=== PATIENT | male | born 1970 | race Caucasian/White ===

== ENCOUNTER → 2018-05-07 | Outpatient (CLI) | payer OTHER ==
--- NOTE | 2018-05-07 07:47 | US ---
EXAMINATION TYPE: US abdomen complete DATE OF EXAM: 05/07/2018 COMPARISON: NONE CLINICAL HISTORY: R74.8 Abnormal levels of other sereum enzymes. EXAM MEASUREMENTS: Liver Length: 14.4 cm Gallbladder Wall: 0.3 cm CBD: 0.5 cm Spleen: 10.4 cm Right Kidney: 11.7 x 4.8 x 4.8 cm Left Kidney: 11.9 x 6.5 x 6.6 cm Pancreas: not visualized due to midline bowel gas Liver: difficult to penetrate There is increased echogenicity of the hepatic parenchyma with dimini shed visualization of the portal triads most commonly relating to hepatic steatosis and limiting eval uation for underlying hepatic masses. Gallbladder: No stones seen Evidence for sonographic Callahan's sign: No CBD: wnl Spleen: wnl Right Kidney: No hydronephrosis or masses seen Left Kidney: No hydronephrosis or masses seen Upper IVC: wnl Abd Aorta: proximally measures 3.1 x 3.2 cm The intrahepatic portion of the IVC and proximal abdominal aorta are within normal limits. There is no evidence of cholelithiasis. Common bile duct is unremarkable. The visualized portions of the ash creas are homogenous. The spleen is unremarkable. Kidneys are symmetric and free of hydronephrosis. No renal lesions are seen. IMPRESSION: 1. Findings most commonly related to hepatic steatosis. 2. Slight ectasia without aneurysmal dilatation of the upper abdominal aorta.
== END | disposition home or self-care (01) ==
LOC: RADUSWWP 06:51
PROVIDERS: ATTEND Family Medicine
DX: K76.0 Fatty (change of) liver, not elsewhere classified (principal); I77.811 Abdominal aortic ectasia
CPT/HCPCS: 76700

== ENCOUNTER 2018-09-17 08:40 | Day surgery (SDC) | payer OTHER ==
[2018-09-10 15:14] VITALS: BMI 33.7
[~2018-09-17 08:40] MED LIST: HYDROmorphone 0.5 MG/0.5 ML SYRINGE IVP PRN; LACTATED RINGERS 1,000 ML IV SCH; LIDOCAINE 1% 20 ML VIAL (10MG/ML) FOR IV START INTRADERMA PRN
[2018-09-17 09:15] VITALS: TEMP 98.2
[2018-09-17 09:36] LABS: Glucose,Whole Blood 91 mg/dL (75-99)
[2018-09-17] MEDS ORDERED: PROPOFOL 10 MG/ML 20 ML VIAL IV ONE (10:14)
[2018-09-17] MEDS ORDERED: fentaNYL (PF) 50 MCG/ML 2 ML AMP ONE (10:14)
[2018-09-17] MEDS ORDERED: LIDOCAINE 1% INJ 10MG/ML (20 ML MDV) ONE (10:14)
[2018-09-17 10:54] VITALS: RESP 18
--- NOTE | 2018-09-17 10:55 | P.PCN ---
Date of Procedure: 09/17/18 Description of Procedure: BRIEF HISTORY: Patient is a 48-year-old pleasant male patient with a medical history of diabetes and hypertension who is scheduled for an elective colonoscopy as a part of colorectal cancer screening. PROCEDURE PERFORMED: Colonoscopy with hot snare polypectomy. PREOPERATIVE DIAGNOSIS: Screening colonoscopy, family history of colonic polyps. ESTIMATED BLOOD LOSS: Minimal. IV sedation per Anesthesia. PROCEDURE: After informed consent was obtained, the patient, was brought into the endoscopy unit. IV sedation was administered by Anesthesia under continuous monitoring. Digital rectal examination was normal. Initially the Olympus CF- 190 flexible video colonoscope was then inserted in the rectum, gradually advanced into the cecum without any difficulty. Careful examination was performed as the scope was gradually being withdrawn. Ileocecal valve and the appendiceal orifice were visualized and appeared normal. Prep was excellent in the left and transverse colon, and fair in the right colon. Mucosa of the cecum , ascending colon, transverse colon, descending colon, sigmoid colon, and rectum appeared normal. A large 1.5 cm pedunculated polyp was found in the descending colon and completely removed with hot snare polypectomy. Retroflexion was performed in the rectum and no lesions were seen, mild internal hemorrhoids were noted. The patient tolerated the procedure well. IMPRESSION: Large pedunculated descending colon polyp removed with hot snare polypectomy. Mild internal hemorrhoids. RECOMMENDATIONS: Findings of this examination were discussed with the patient and his . Okay to resume regular diet. Await pathology from polypectomy. Repeat colonoscopy in one year given fair prep in the right colon, would recommend 2 day prep at that time.
[2018-09-17 11:13] VITALS: BP 114/68; PULSE 82
== END 2018-09-17 11:28 | disposition home or self-care (01) ==
LOC: ORWHC2ENDO 08:40
PROVIDERS: ATTEND Internal Medicine
DX: Z12.11 Encounter for screening for malignant neoplasm of colon (principal); D12.4 Benign neoplasm of descending colon; K64.8 Other hemorrhoids; Z80.0 Family history of malignant neoplasm of digestive organs; E11.9 Type 2 diabetes mellitus without complications; I10 Essential (primary) hypertension; G47.33 Obstructive sleep apnea (adult) (pediatric); F41.9 Anxiety disorder, unspecified; F17.200 Nicotine dependence, unspecified, uncomplicated; Z99.89 Dependence on other enabling machines and devices; Z79.84 Long term (current) use of oral hypoglycemic drugs; Z79.899 Other long term (current) drug therapy; Z86.718 Personal history of other venous thrombosis and embolism
CPT/HCPCS: 45385; J2001; J3010; J2704; 88305

== ENCOUNTER 2018-12-06 11:05 | Emergency (ER) | payer OTHER ==
[2018-12-06] MEDS ORDERED: SODIUM CHLORIDE 0.9% 1,000 ML IV STA (11:17)
[2018-12-06] MEDS ORDERED: HYDROmorphone 0.5 MG/0.5 ML SYRINGE IVP STA ×2 (11:27→12:34)
[2018-12-06] MEDS ORDERED: ONDANSETRON 4 MG/2 ML VIAL IVP STA (11:27)
--- NOTE | 2018-12-06 11:29 | ED ---
Abdominal Pain HPI - General Chief Complaint: Abdominal Pain Stated Complaint: Gallbladder attack Time Seen by Provider: 12/06/18 11:17 Source: patient, RN notes reviewed Mode of arrival: ambulatory Limitations: no limitations - History of Present Illness Initial Comments: 48-year-old male presents emergency Department chief complaint of right upper quadrant abdominal pain. Patient states she's had some on-and-off pain since Friday but states that worsened to severe point this morning. Patient states nonradiating pain. Patient states this started after eating breakfast morning. Patient does admit to some nausea no vomiting no diarrhea no constipation. Patient had no prior abdominal surgeries. Denies fever, chills, chest pain or shortness breath. - Related Data Home Medications Medication Instructions Recorded Confirmed Venlafaxine HCl ER [Effexor Xr] 150 mg PO 1230 09/10/18 09/10/18 metFORMIN HCL [metFORMIN HCL ER] 1,000 mg PO BID 09/10/18 09/10/18 sitaGLIPtin [Januvia] 100 mg PO DAILY 09/10/18 09/10/18 Allergies Allergy/AdvReac Type Severity Reaction Status Date / Time No Known Allergies Allergy Verified 12/06/18 11:10 Review of Systems ROS Statement: Those systems with pertinent positive or pertinent negative responses have been documented in the HPI. ROS Other: All systems not noted in ROS Statement are negative. Past Medical History Past Medical History: Diabetes Mellitus, Deep Vein Thrombosis (DVT), Sleep Apnea/CPAP/BIPAP Additional Past Medical History / Comment(s): C PAP MACHINE , DVT LEFT LEG 2009 History of Any Multi-Drug Resistant Organisms: None Reported Past Surgical History: Orthopedic Surgery Additional Past Surgical History / Comment(s): LEFT FOOT, LEFT LEG-SPIDER BITE SURGERY ON VEIN Past Anesthesia/Blood Transfusion Reactions: No Reported Reaction Past Psychological History: Anxiety Smoking Status: Former smoker - Past Family History Brother(s) Family Medical History: Deep Vein Thrombosis (DVT) General Exam Limitations: no limitations General appearance: alert, in no apparent distress Head exam: Present: atraumatic, normocephalic, normal inspection Eye exam: Present: normal appearance, PERRL, EOMI. Absent: scleral icterus, conjunctival injection, periorbital swelling ENT exam: Present: normal exam, normal oropharynx, mucous membranes moist Neck exam: Present: normal inspection, full ROM. Absent: tenderness, meningismus, lymphadenopathy Respiratory exam: Present: normal lung sounds bilaterally. Absent: respiratory distress, wheezes, rales, rhonchi, stridor Cardiovascular Exam: Present: normal rhythm, tachycardia, normal heart sounds. Absent: systolic murmur, diastolic murmur, rubs, gallop, clicks GI/Abdominal exam: Present: soft, tenderness (Moderate right upper quadrant tenderness), normal bowel sounds. Absent: distended, guarding, rebound, rigid Back exam: Absent: CVA tenderness (R), CVA tenderness (L) Skin exam: Present: warm, dry, intact, normal color. Absent: rash Course Vital Signs 12/06/18 12/06/18 11:07 12:43 Temperature 98.3 F Pulse Rate 115 H 86 Respiratory 18 14 Rate Blood Pressure 125/80 109/69 O2 Sat by Pulse 99 95 Oximetry Medical Decision Making - Medical Decision Making 48-year-old male presents for abdominal pain. Patient symptoms started after eating. Patient labwork, all son. All sounds shows dilated common bile duct. No evidence of gallstones or cholecystitis. Patient will follow-up with on-call surgery for possible biliary dyskinesia, biliary colic. Patient's temperature IV pain meds. Patient advised to follow low-fat diet. - Lab Data Result diagrams: 12/06/18 11:25 12/06/18 11:25 Lab Results 12/06/18 12/06/18 12/06/18 Range/Units 11:25 11:25 Unknown WBC 10.1 (3.8-10.6) k/uL RBC 6.42 H (4.30-5.90) m/uL Hgb 18.2 H (13.0-17.5) gm/dL Hct 55.6 H (39.0-53.0) % MCV 86.6 (80.0-100.0) fL MCH 28.3 (25.0-35.0) pg MCHC 32.7 (31.0-37.0) g/dL RDW 13.5 (11.5-15.5) % Plt Count 254 (150-450) k/uL Neutrophils % 56 % Lymphocytes % 31 % Monocytes % 6 % Eosinophils % 5 % Basophils % 1 % Neutrophils # 5.6 (1.3-7.7) k/uL Lymphocytes # 3.2 (1.0-4.8) k/uL Monocytes # 0.6 (0-1.0) k/uL Eosinophils # 0.5 (0-0.7) k/uL Basophils # 0.1 (0-0.2) k/uL Sodium 140 (137-145) mmol/L Potassium 4.4 (3.5-5.1) mmol/L Chloride 106 (98-107) mmol/L Carbon Dioxide 22 (22-30) mmol/L Anion Gap 12 mmol/L BUN 16 (9-20) mg/dL Creatinine 0.99 (0.66-1.25) mg/dL Est GFR (CKD-EPI)AfAm >90 (>60 ml/min/1.73 sqM) Est GFR (CKD-EPI)NonAf 88 (>60 ml/min/1.73 sqM) Glucose 117 H (74-99) mg/dL Calcium 10.5 H (8.4-10.2) mg/dL Total Bilirubin 0.8 (0.2-1.3) mg/dL AST 37 (17-59) U/L ALT 50 (21-72) U/L Alkaline Phosphatase 86 (38-126) U/L Total Protein 8.4 H (6.3-8.2) g/dL Albumin 4.7 (3.5-5.0) g/dL Lipase 92 (23-300) U/L Urine Color Yellow Urine Appearance Clear (Clear) Urine pH 7.0 (5.0-8.0) Ur Specific [place] 1.020 (1.001-1.035) Urine Protein Negative (Negative) Urine Glucose (UA) 4+ H (Negative) Urine Ketones Trace H (Negative) Urine Blood Negative (Negative) Urine Nitrite Negative (Negative) Urine Bilirubin Negative (Negative) Urine Urobilinogen 3.0 (<2.0) mg/dL Ur Leukocyte Esterase Negative (Negative) Disposition Clinical Impression: Abdominal pain, Biliary colic Disposition: HOME SELF-CARE Condition: Stable Instructions (If sedation given, give patient instructions): Abdominal Pain (ED) Additional Instructions: Please return to the Emergency Department if symptoms worsen or any other concerns. Is patient prescribed a controlled substance at d/c from ED?: No Referrals: Bubba Beach MD [Primary Care Provider] - 1-2 days Kevin Peck MD [STAFF PHYSICIAN] - 1-2 days Time of Disposition: 13:05
[2018-12-06 11:35] LABS: Basophils # (A) 0.1 k/uL (0-0.2); Basophils % (A) 1 %; Eosinophils # (A) 0.5 k/uL (0-0.7); Eosinophils % (A) 5 %; HGB 18.2 gm/dL (13.0-17.5); Lymphocytes # (A) 3.2 k/uL (1.0-4.8); Lymphocytes % (A) 31 %; MCH 28.3 pg (25.0-35.0); MCHC 32.7 g/dL (31.0-37.0); MCV 86.6 fL (80.0-100.0); Mean Platelet Volume 6.5; Monocytes # (A) 0.6 k/uL (0-1.0); Monocytes % (A) 6 %; Neutrophils # (A) 5.6 k/uL (1.3-7.7); Neutrophils % (A) 56 %; Platelet Count 254 k/uL (150-450); RBC 6.42 m/uL (4.30-5.90); RDW 13.5 % (11.5-15.5); WBC 10.1 k/uL (3.8-10.6)
[2018-12-06 11:37] LABS: HCT 55.6 % (39.0-53.0)
[2018-12-06 11:46] LABS: Albumin 4.7 g/dL (3.5-5.0); Anion Gap 12 mmol/L; Blood Urea Nitrogen 16 mg/dL (9-20); Calcium 10.5 mg/dL (8.4-10.2); Carbon Dioxide 22 mmol/L (22-30); Chloride 106 mmol/L (98-107); Glucose 117 mg/dL (74-99); Lipase 92 U/L (23-300); Sodium 140 mmol/L (137-145); Total Bilirubin 0.8 mg/dL (0.2-1.3); Total Protein 8.4 g/dL (6.3-8.2)
[2018-12-06 11:57] LABS: ALT 50 U/L (21-72); AST 37 U/L (17-59); Alkaline Phosphatase 86 U/L (38-126); Potassium 4.4 mmol/L (3.5-5.1)
--- NOTE | 2018-12-06 12:25 | US ---
EXAMINATION TYPE: US gallbladder DATE OF EXAM: 12/06/2018 COMPARISON: US dated 05/07/2018 CLINICAL HISTORY: Pain. Nausea EXAM MEASUREMENTS: Liver Length: 14.8 cm Gallbladder Wall: 0.2 cm CBD: 0.7 cm Right Kidney: 11.2 x 5.3 x 5.6 cm Pancreas: not visualized due to midline bowel gas Liver: difficult to penetrate Gallbladder: No stones seen Evidence for sonographic Callahan's sign: no CBD: measures 0.7 cm Right Kidney: No hydronephrosis or masses seen There is no ascites. Cortical medullary differentiation within the right kidney is normal. Common manny e duct measurement is dilated. IMPRESSION: Exam is limited. Common bile duct is dilated. Probable hepatic steatosis, findings simila r to prior exam, there may be liver enlargement.
[2018-12-06] MEDS ORDERED: KETOROLAC 30 MG/ML 1 ML VIAL IVP STA (12:35)
[2018-12-06 12:41] LABS: Appearance,Urine Clear (Clear); Bilirubin,Urine Negative (Negative); Blood,Urine Negative (Negative); Color,Urine Yellow; Glucose,Urine (UA) 4+ (Negative); Ketones,Urine Trace (Negative); Leukocyte Esterase,Urine Negative (Negative); Nitrite,Urine Negative (Negative); Protein,Urine Negative (Negative)
[2018-12-06] MEDS ORDERED: ONDANSETRON 4 MG ODT STARTER PACK 2 TAB BTL PO STA (13:04)
[2018-12-06] MEDS ORDERED: Acetaminophen-Codeine 300-30mg TAB PO STA (13:04)
[2018-12-06] MEDS ORDERED: ACET/COD 300 MG/30 MG STARTER PACK 6 TAB BTL PO STA (13:21)
[2018-12-06 13:35] VITALS: BP 113/63; PULSE 88; RESP 18; TEMP 98
== END 2018-12-06 13:34 | disposition home or self-care (01) ==
LOC: EC 11:05
DX: K80.50 Calculus of bile duct without cholangitis or cholecystitis without obstruction (principal); E11.9 Type 2 diabetes mellitus without complications; G47.30 Sleep apnea, unspecified; Z99.89 Dependence on other enabling machines and devices; F41.9 Anxiety disorder, unspecified; Z86.718 Personal history of other venous thrombosis and embolism; Z87.891 Personal history of nicotine dependence; Z79.84 Long term (current) use of oral hypoglycemic drugs; Z79.899 Other long term (current) drug therapy
CPT/HCPCS: 36415; 80053; 83690; 85025; 81003; 76705; 99284; 96374; 96375 ×2; 96376; 96361 ×2; J2405; J1885; S0119; J1170

== ENCOUNTER → 2018-12-08 | Outpatient (CLI) | payer OTHER ==
--- NOTE | 2018-12-08 10:36 | CT ---
EXAMINATION TYPE: CT abdomen pelvis wo con DATE OF EXAM: 12/08/2018 COMPARISON: Ultrasound 12/06/2018 HISTORY: 48-year-old male abdominal pain CT DLP: 945 mGycm. Automated exposure control for dose reduction was used. TECHNIQUE: Contiguous axial scanning of the abdomen and pelvis without IV contrast. Coronal and sagit zuleima reconstructions performed. FINDINGS: Heart normal size without pericardial effusion. Lung bases clear without pleural effusion. Small hiatal hernia. Liver enlarged at 19.4 cm with marked diffuse low-attenuation. Some focal fatty sparing along the gal lbladder fossa. The gallbladder is mildly hydropic at 4.3 cm wide open without surrounding inflammation. Noncontrast appearance of the adrenal glands, left kidney, spleen, and pancreas show no gross abnorma l mobility. Punctate 2 mm nonobstructive right renal calculus. Tiny fatty meal or hernia. No dilated small bowel, free fluid, or free air. Some air and stool within a nondilated appendix. No surrounding inflammatory change. Cecum is turned medially likely normal variation. Moderate stool in the cecum and mild throughout the remainder of the colon. No pericolonic inflammatory change. No mesenteric or retroperitoneal lymphadenopathy. There is mild circumferential bladder wall thickening. Prostate gland enlargement 5.3 cm wide. Mildly patulous right inguinal canal. Right-sided pelvic phlebolith. No abnormal fluid collection in the pe lvis or pelvic lymphadenopathy seen. Bones: Mild degenerative changes at the hips. There is a left L5 hemisacralization and a disc bulge a ho at L4-L5. Anterior plate spondylosis lower thoracic spine. IMPRESSION: 1. Appendix is visualized and shows some retained air and fecal debris within. No specific findings of acute appendicitis. 2. Punctate 2 mm nonobstructive right renal calculus. 3. Gallbladder mildly hydropic. This may related to fasting state. There are no surrounding inflamma tory changes. If right upper quadrant pain or concern for early acute cholecystitis, short interval f ollow-up ultrasound or HIDA scan. 4. Hepatomegaly (19.4 cm) with marked hepatic steatosis. Correlate with LFTs, lipid profile, and pat ient risk factors. 5. Small hiatal hernia. 6. Prostatomegaly (5.3 cm wide). Mild circumferential bladder wall thickening could reflect chronic bladder wall hypertrophy or cystitis. Clinically correlate.
== END ==
LOC: RADCTMAIN 10:06
PROVIDERS: ATTEND Nurse Practitioner Adult Health
DX: N20.0 Calculus of kidney (principal); K76.0 Fatty (change of) liver, not elsewhere classified; K44.9 Diaphragmatic hernia without obstruction or gangrene; N40.0 Benign prostatic hyperplasia without lower urinary tract symptoms; R93.49 Abnormal radiologic findings on diagnostic imaging of other urinary organs; R16.0 Hepatomegaly, not elsewhere classified; R93.3 Abnormal findings on diagnostic imaging of other parts of digestive tract
CPT/HCPCS: 74176

== ENCOUNTER 2021-04-11 04:19 | Emergency (ER) | payer OTHER ==
[2021-04-11 04:27] VITALS: BP 132/79; RESP 18; TEMP 98
[2021-04-11] MEDS ORDERED: ETODOLAC 400 MG TAB PO STA (04:46)
[2021-04-11] MEDS ORDERED: ACETAMINOPHEN TAB 500 MG TAB PO STA (04:46)
[2021-04-11] MEDS ORDERED: HYDROmorphone 1 MG/ML 1 ML SYRINGE IM STA (04:46)
--- NOTE | 2021-04-11 04:55 | ED ---
Extremity Problem HPI - General Chief complaint: Extremity Problem,Nontraumatic Stated complaint: Knee Pain Time Seen by Provider: 04/11/21 04:26 Source: patient, RN notes reviewed, old records reviewed Mode of arrival: ambulatory Limitations: no limitations - History of Present Illness Initial comments: This is a 50-year-old male DF for evaluation presents today for evaluation of severe left knee pain patient has ligamentous pain of the left knee patient states he did hear a snap unable to the bathroom today felt a popping sensation. The pain left lateral aspect of his left knee. Severe difficulty extending severe difficulty flexing the knee. Pain with ambulation and pain with weightbearing MD Complaint: extremity pain, extremity swelling, joint pain, other (Severe left lateral knee pain) -: days(s) Location: left, lower extremity, knee History of Same: No -: Yes arthralgia Radiation: proximal, distal Severity scale (1-10): 10 Quality: sharp, constant Consistency: constant Improves with: nothing Worsens with: weight bearing, walking, palpation Associated Symptoms: denies other symptoms - Related Data Home Medications Medication Instructions Recorded Confirmed Venlafaxine HCl ER [Effexor Xr] 150 mg PO 1230 09/10/18 09/10/18 metFORMIN HCL [metFORMIN HCL ER] 1,000 mg PO BID 09/10/18 09/10/18 sitaGLIPtin [Januvia] 100 mg PO DAILY 09/10/18 09/10/18 Allergies Allergy/AdvReac Type Severity Reaction Status Date / Time No Known Allergies Allergy Verified 04/11/21 04:27 Review of Systems ROS Statement: Those systems with pertinent positive or pertinent negative responses have been documented in the HPI. ROS Other: All systems not noted in ROS Statement are negative. Past Medical History Past Medical History: Diabetes Mellitus, Deep Vein Thrombosis (DVT), Sleep Apnea/CPAP/BIPAP Additional Past Medical History / Comment(s): C PAP MACHINE , DVT LEFT LEG 2009 History of Any Multi-Drug Resistant Organisms: None Reported Past Surgical History: Orthopedic Surgery Additional Past Surgical History / Comment(s): LEFT FOOT, LEFT LEG-SPIDER BITE SURGERY ON VEIN Past Anesthesia/Blood Transfusion Reactions: No Reported Reaction Past Psychological History: Anxiety Smoking Status: Former smoker Past Alcohol Use History: Rare Past Drug Use History: None Reported - Past Family History Brother(s) Family Medical History: Deep Vein Thrombosis (DVT) General Exam - General Exam Comments Initial Comments: Left biceps Femorris, knee, left lateral knee pain Limitations: no limitations General appearance: alert, in no apparent distress Head exam: Present: atraumatic, normocephalic, normal inspection Eye exam: Present: normal appearance, PERRL, EOMI. Absent: scleral icterus, conjunctival injection, periorbital swelling ENT exam: Present: normal exam, mucous membranes moist Neck exam: Present: normal inspection. Absent: tenderness, meningismus, lymphadenopathy Respiratory exam: Present: normal lung sounds bilaterally. Absent: respiratory distress, wheezes, rales, rhonchi, stridor Cardiovascular Exam: Present: regular rate, normal rhythm, normal heart sounds. Absent: systolic murmur, diastolic murmur, rubs, gallop, clicks GI/Abdominal exam: Present: soft, normal bowel sounds. Absent: distended, tenderness, guarding, rebound, rigid Extremities exam: Present: normal inspection, full ROM, normal capillary refill. Absent: tenderness, pedal edema, joint swelling, calf tenderness Back exam: Present: normal inspection Neurological exam: Present: alert, oriented X3, CN II-XII intact Psychiatric exam: Present: normal affect, normal mood Skin exam: Present: warm, dry, intact, normal color. Absent: rash Course Vital Signs 04/11/21 04:22 Temperature 98 F Pulse Rate 85 Respiratory 18 Rate Blood Pressure 132/79 O2 Sat by Pulse 98 Oximetry - Reevaluation(s) Reevaluation #1: 04/11/21 04:54 Record is reviewed Reevaluation #2: 04/11/21 04:54 His pain is improved Patient is able to ambulate Medical Decision Making - Medical Decision Making 50 male to the ER with severe knee pain left biceps worse pain. Patient given knee immobilizer pain control follow-up with orthopedics - Radiology Data Radiology results: report reviewed (X-ray left knee is negative for traumatic injury), image reviewed Disposition Clinical Impression: Biceps femoris tendon strain at knee, Left knee pain Disposition: HOME SELF-CARE Condition: Good Instructions (If sedation given, give patient instructions): Knee Pain (ED), Arthralgia (ED) Is patient prescribed a controlled substance at d/c from ED?: No Referrals: Jori Callahan MD [STAFF PHYSICIAN] - 1-2 days
--- NOTE | 2021-04-11 05:20 | XR ---
EXAMINATION TYPE: XR knee complete LT DATE OF EXAM: 04/11/2021 COMPARISON: NONE HISTORY: Knee pain TECHNIQUE: 3 views FINDINGS: I see no fracture nor dislocation. Knee joint spaces are fairly normal. There is small knee joint effusion. There is minimal spurring on the superior patella. IMPRESSION: Small joint effusion. No fracture.
[2021-04-11 06:35] VITALS: PULSE 78
== END 2021-04-11 06:35 | disposition home or self-care (01) ==
LOC: EC 04:19
DX: S46.212A Strain of muscle, fascia and tendon of other parts of biceps, left arm, initial encounter (principal); E11.9 Type 2 diabetes mellitus without complications; Z86.718 Personal history of other venous thrombosis and embolism; G47.30 Sleep apnea, unspecified; Z99.81 Dependence on supplemental oxygen; Z87.891 Personal history of nicotine dependence; X50.9XXA Other and unspecified overexertion or strenuous movements or postures, initial encounter
CPT/HCPCS: 73562; 99283; 96372; J1170

== ENCOUNTER → 2021-07-13 | Outpatient (CLI) | payer BC ==
--- NOTE | 2021-07-14 04:05 | MR ---
EXAMINATION TYPE: MR knee LT wo con DATE OF EXAM: 07/13/2021 COMPARISON: None HISTORY: Left knee pain, S/P fall fall March 2021. Multiplanar multiecho imaging of the left knee without contrast. There is large knee joint effusion. The anterior and posterior cruciate ligaments are intact. Collate ral ligaments are intact. There is extensive abnormal increased signal on the proton density images involving the in prior hear t small tibia. This is more severe in the medial tibial condyle. There is signal loss in the medial t ibial condyle on the T1 images consistent with significant edema. I see no fracture line. There is horizontal tear through the posterior horn of the medial meniscus extending partly into the anterior horn of the medial meniscus. Lateral meniscus appears fairly normal. The distal femur is intact. There is some narrowing of the me dial joint space of the knee. There is cartilage loss on both sides of the medial joint space. IMPRESSION: Large knee joint effusion with osteoarthritis in the medial joint space. Horizontal tear through the medial meniscus. Extensive bone bruise in the proximal tibia and more severe involvement of the media l tibial condyle. No fracture line seen.
== END | disposition home or self-care (01) ==
LOC: RADMRIMAIN 19:49
PROVIDERS: ATTEND Orthopaedic Surgery
DX: M17.12 Unilateral primary osteoarthritis, left knee (principal); M23.221 Derangement of posterior horn of medial meniscus due to old tear or injury, right knee; M23.211 Derangement of anterior horn of medial meniscus due to old tear or injury, right knee

== ENCOUNTER → 2021-08-11 | Outpatient (CLI) | payer BC ==
[2021-08-11 08:46] LABS: Basophils # (A) 0.1 k/uL (0-0.2); Basophils % (A) 1 %; Eosinophils # (A) 0.5 k/uL (0-0.7); Eosinophils % (A) 6 %; HGB 17.4 gm/dL (13.0-17.5); Lymphocytes # (A) 2.3 k/uL (1.0-4.8); Lymphocytes % (A) 27 %; MCH 29.3 pg (25.0-35.0); MCHC 33.5 g/dL (31.0-37.0); MCV 87.5 fL (80.0-100.0); Mean Platelet Volume 6.6; Monocytes # (A) 0.6 k/uL (0-1.0); Monocytes % (A) 7 %; Neutrophils # (A) 4.9 k/uL (1.3-7.7); Neutrophils % (A) 57 %; Platelet Count 246 k/uL (150-450); RBC 5.95 m/uL (4.30-5.90); RDW 13.4 % (11.5-15.5); WBC 8.5 k/uL (3.8-10.6)
[2021-08-11 09:03] LABS: Potassium 4.4 mmol/L (3.5-5.1)
== END | disposition home or self-care (01) ==
LOC: LABPAT 08:06
PROVIDERS: ATTEND Orthopaedic Surgery
DX: Z01.812 Encounter for preprocedural laboratory examination (principal); M23.92 Unspecified internal derangement of left knee
CPT/HCPCS: 80051; 85025; 93005

== ENCOUNTER 2021-08-30 12:13 | Day surgery (SDC) | payer BC ==
[2021-08-29 08:44] VITALS: BMI 32.5
--- NOTE | 2021-08-29 17:49 | HP ---
HISTORY AND PHYSICAL DATE OF SURGERY: 08/30/2021 Quintin Aldridge is a 51-year-old patient seen with progressive left knee pain. Options for treatment were discussed. He elected to proceed with left knee arthroscopy. Consent was obtained. PAST MEDICAL HISTORY: Slt-svpzxkv-ijtivmtta diabetes. PAST SURGICAL HISTORY: Noncontributory. DAILY MEDICATIONS: Noncontributory. ALLERGIES: NONE. SOCIAL HISTORY: He denies tobacco use. PHYSICAL EVALUATION OF THE LEFT KNEE: His range of motion is negative 2/3 to 125. Mild effusion. Tenderness, medial joint line. Positive medial Lou's. Ligaments stable. Hip rotation without pain. Distal neurovascular exam intact. Left knee radiographs revealed moderate medial compartment osteoarthritis. MRI of the left knee revealed medial meniscal tear and large effusion. IMPRESSION: 1. Internal derangement of left knee with medial meniscal tear. 2. Nhi-bhnhmfl-xvgnlhtng diabetes. PLAN: Left knee arthroscopy with partial meniscectomy and debridement. MMODL / IJN: [id number] /
[~2021-08-30 12:13] MED LIST changes: +DEXAMETHASONE SOD PHOSPHATE 4 MG/ML 1 ML VIAL IV ONE; -HYDROmorphone 0.5 MG/0.5 ML SYRINGE IVP PRN; +LIDOCAINE 1% (10MG/ML) FOR IV START INTRADERMA PRN; -LIDOCAINE 1% 20 ML VIAL (10MG/ML) FOR IV START INTRADERMA PRN; +METOCLOPRAMIDE 5 MG/ML 2 ML VIAL IVP PRN; +MIDAZOLAM 2 MG/2 ML VIAL IV PRN; +ONDANSETRON 4 MG/2 ML VIAL IVP ONE
[2021-08-30 13:14] LABS: Glucose,Whole Blood 88 mg/dL (75-99)
[2021-08-30] MEDS ORDERED: SUCCINYLCHOLINE CHLORIDE 100 MG/5 ML SYR IV ONE (13:25)
[2021-08-30] MEDS ORDERED: HYDROmorphone (PF) 1 MG/ML ONE (13:25)
[2021-08-30] MEDS ORDERED: PROPOFOL 10 MG/ML 20 ML VIAL IV ONE (13:25)
[2021-08-30] MEDS ORDERED: LIDOCAINE 1% INJ 10MG/ML (20 ML MDV) ONE (13:25)
[2021-08-30] MEDS ORDERED: .fentaNYL (PF) 50 MCG/ML 2 ML AMP ONE (13:25)
[2021-08-30] MEDS ORDERED: MIDAZOLAM 2 MG/2 ML VIAL ONE (13:25)
[2021-08-30] MEDS ORDERED: BUPIVACAINE (PF) 0.25% 30 ML VIAL SQ ONE ×2 (13:25→14:00)
--- NOTE | 2021-08-30 14:21 | P.OP ---
Date of Procedure: 08/30/21 Preoperative Diagnosis: Internal derangement left knee Postoperative Diagnosis: 1. Tear lateral meniscus left knee 2. Grade 3/4 chondromalacia medial femoral condyle left knee 3. Reactive synovitis medial, lateral and suprapatellar compartments left knee Procedure(s) Performed: 1. Arthroscopic partial lateral meniscectomy left knee 2. Arthroscopic chondroplasty medial femoral condyle left knee 3. Arthroscopic microfracture medial femoral condyle left knee 4. Arthroscopic partial synovectomy medial, lateral and suprapatellar compartments left knee Anesthesia: LINDSAYA, local Surgeon: Andrés Mccormick Estimated Blood Loss (ml): 6 Pathology: none sent Condition: stable Disposition: PACU Indications for Procedure: 51-year-old patient seen with progressive left knee pain. After having treatment options discussed, he elected to proceed with arthroscopy. Operative Findings: See description of procedure Description of Procedure: Patient was taken to the operative suite. Patient underwent a left anesthetic by the department of anesthesia. Patient was given preoperative antibiotics. The left lower extremity was placed in a well-padded arthroscopic leg chaudhary. The left leg was prepped and draped in the normal sterile orthopedic fashion. A lateral parapatellar and suprapatellar incision was made. Trochars were inserted. Arthroscopy was initiated. Suprapatellar pouch revealed diffuse thick reactive synovitis. The patellofemoral joint appeared to articulate congruently. There with grade 1 chondral malacia of the patella with no osteochondral tears present. The scope was guided into the medial gutter. No loose bodies or plica were identified The scope was then guided into the medial compartment. A medial parapatellar incision was made. Trocar inserted followed by probe. The medial meniscus was found to be stable. There were grade 3/4 chondromalacia changes medial femoral condyle with diffuse osteochondral tears present. There was thick reactive synovitis anteriorly. I performed a cho ndroplasty of the medial femoral condyle. I performed a partial synovectomy. There was good decompression of the synovitis. There was one area of exposed bone medial femoral condyle. I introduced a microfracture awl. I performed a microfracture to medial femoral condyle penetrating the bone with resultant bleeding microfracture site. The residual osteochondral surface was stable. Scope and probe were then guided into the intercondylar notch. Cruciates were identified, probed and found to be stable. The scope and probe were then guided into lateral compartment. There was a tear involving the anterior horn of the lateral meniscus. The posterior horn and midbody were stable. There was no significant chondromalacia. There was some thick reactive synovitis anteriorly. I performed a partial lateral meniscectomy. I performed a partial synovectomy. The residual meniscus was stable. There was good decompression of the synovitis. The scope was in guided back into the suprapatellar compartment. I introduced a motorized shaver into the super patellar compartment. I debrided some piecemeal fragments of meniscus that I encountered. I performed a partial synovectomy. The shaver was removed. There was good decompression of the synovitis. I now took one more look around the entire knee, no residual debris. Instruments were now removed from the joint. The joint was infiltrated with .25% Marcaine. Steri-Strips were applied to the portal sites. Sterile dressings were applied. The patient was placed into a VIOLETA hose. No tourniquet was utilized. The patient was awakened, transferred to a bed and taken to recovery stable satisfactory condition.
[2021-08-30] MEDS: HYDROmorphone 0.5 MG/0.5 ML SYRINGE IVP PRN ×3 (14:32→14:50)
[2021-08-30 14:35] VITALS: TEMP 97
[2021-08-30 14:37] VITALS: RESP 16
[2021-08-30 14:45] LABS: Glucose,Whole Blood 103 mg/dL (75-99)
[2021-08-30 15:23] VITALS: BP 134/84; PULSE 100
== END 2021-08-30 16:00 | disposition home or self-care (01) ==
LOC: OR 12:13
PROVIDERS: ATTEND Orthopaedic Surgery
DX: M23.201 Derangement of unspecified lateral meniscus due to old tear or injury, left knee (principal); M94.262 Chondromalacia, left knee; M65.862 Other synovitis and tenosynovitis, left lower leg; E11.9 Type 2 diabetes mellitus without complications; I25.2 Old myocardial infarction; G47.33 Obstructive sleep apnea (adult) (pediatric); Z86.69 Personal history of other diseases of the nervous system and sense organs; Z79.84 Long term (current) use of oral hypoglycemic drugs; Z79.899 Other long term (current) drug therapy
CPT/HCPCS: 29881; 29879; J2250; J1100; J0690; J2405; J2001; J3010; J1170 ×2; J0330; J2704

== ENCOUNTER 2023-09-19 14:41 | Observation (INO) | payer BC, OTHER ==
[2023-09-19] MEDS ORDERED: NITROGLYCERIN SL TABS 0.4 MG TAB SUBLINGUAL STA (14:48)
[2023-09-19] MEDS ORDERED: ASPIRIN 81 MG PO STA (14:48)
--- NOTE | 2023-09-19 14:49 | ED ---
General Adult HPI <Antoine Loredo - Last Filed: 09/19/23 14:51> <Jane Lennon - Last Filed: 09/20/23 02:07> - General Stated complaint: Chest Pain,Sob Time Seen by Provider: 09/19/23 14:49 - History of Present Illness Initial comments: 53-year-old male presenting to the ED with a chief complaint of chest pain. Patient states at lunch today while at rest started to feel a pressure on the left side of his chest. Notes some associated shortness of breath with this as well. States during this episode felt as if he was going to pass out. (Antoine Loredo) 53-year-old male with past history of MA who presents to the emergency department reporting chest pain. States that the pain started while he was at work. Located on the left side of his chest with radiation into his left arm. Does cause some left arm numbness. He had associated shortness of breath when the symptoms started and felt like he was going to pass out. He denies any nausea or vomiting. Does admit to some diaphoresis. States that he does have continued pain which is familiar to when he had his last heart attack. Patient states that he does not have any stents. He had a heart cath 12 years ago and was placed on several medications but no stent was required. He denies any numbness, tingling or weakness into his legs. No ripping or tearing sensation to her back. No fevers, chills or cough. Patient states he had a history of a DVT after a "spider bite" but never required anticoagulation. No other alleviating, precipitating or modifying factors (Jane Lennon) - Related Data Home Medications Medication Instructions Recorded Confirmed Venlafaxine HCl ER [Effexor Xr] 150 mg PO DAILY 09/10/18 09/19/23 Tamsulosin [Flomax] 0.4 mg PO DAILY 09/19/23 09/19/23 Tirzepatide [Mounjaro] 5 mg SQ AGUIRRE 09/19/23 09/19/23 Allergies Allergy/AdvReac Type Severity Reaction Status Date / Time No Known Allergies Allergy Verified 09/19/23 17:01 Review of Systems ROS Other: All systems not noted in ROS Statement are negative. <Antoine Loredo - Last Filed: 09/19/23 14:51> ROS Other: All systems not noted in ROS Statement are negative. <Neri Lennonah Brittanie - Last Filed: 09/20/23 02:07> ROS Statement: Those systems with pertinent positive or pertinent negative responses have been documented in the HPI. Past Medical History Past Medical History: Diabetes Mellitus, Deep Vein Thrombosis (DVT), GERD/Reflux, Sleep Apnea/CPAP/BIPAP Additional Past Medical History / Comment(s): CPAP USE , HX DVT LEFT LEG 2009, seizure X1 20 yrs ago. History of Any Multi-Drug Resistant Organisms: None Reported Past Surgical History: Orthopedic Surgery Additional Past Surgical History / Comment(s): LEFT FOOT SURGERY, LEFT LEG- SPIDER BITE SURGERY ON VEIN. Past Anesthesia/Blood Transfusion Reactions: No Reported Reaction Smoking Status: Former smoker - Past Family History Brother(s) Family Medical History: Deep Vein Thrombosis (DVT) <Trell Loredoua - Last Filed: 09/19/23 14:51> General Exam General appearance: alert, in no apparent distress Head exam: Present: atraumatic, normocephalic, normal inspection Eye exam: Present: normal appearance, PERRL, EOMI. Absent: scleral icterus, conjunctival injection, periorbital swelling ENT exam: Present: normal exam, mucous membranes moist Neck exam: Present: normal inspection. Absent: tenderness, meningismus, lymphadenopathy Respiratory exam: Present: normal lung sounds bilaterally. Absent: respiratory distress, wheezes, rales, rhonchi, stridor Cardiovascular Exam: Present: regular rate, normal rhythm, normal heart sounds. Absent: systolic murmur, diastolic murmur, rubs, gallop, clicks GI/Abdominal exam: Present: soft, normal bowel sounds. Absent: distended, tenderness, guarding, rebound, rigid Extremities exam: Present: normal inspection, full ROM, normal capillary refill. Absent: tenderness, pedal edema, joint swelling, calf tenderness Back exam: Present: normal inspection Neurological exam: Present: alert, oriented X3, CN II-XII intact Psychiatric exam: Present: normal affect, normal mood Skin exam: Present: warm, dry, intact, normal color. Absent: rash <CitlalliJane Brittanie - Last Filed: 09/20/23 02:07> Course Vital Signs 09/19/23 09/19/23 09/19/23 14:53 16:43 17:00 Temperature 98.6 F Pulse Rate 81 Respiratory 19 Rate Blood Pressure 154/85 122/76 126/71 O2 Sat by Pulse 98 Oximetry 09/19/23 18:18 Temperature 98.9 F Pulse Rate 72 Respiratory 18 Rate Blood Pressure 108/73 O2 Sat by Pulse 97 Oximetry Medical Decision Making - Lab Data Result diagrams: 09/19/23 14:54 09/19/23 14:54 <Jane Lennon A - Last Filed: 09/20/23 02:07> - Medical Decision Making Was pt. sent in by a medical professional or institution (, PA, CUSTOMER SERVICE VOICE, urgent care, hospital, or intermediate...) When possible be specific @ -No Did you speak to anyone other than the patient for history (EMS, parent, family, police, friend...)? What history was obtained from this source @ -No Did you review nursing and triage notes (agree or disagree)? Why? @ -I reviewed and agree with nursing and triage notes Were old charts reviewed (outside hosp., previous admission, EMS record, old EKG, old radiological studies, urgent care reports/EKG's, intermediate records)? Report findings @ -No old charts were reviewed Differential Diagnosis (chest pain, altered mental status, abdominal pain women, abdominal pain men, vaginal bleeding, weakness, fever, dyspnea, syncope, headache, dizziness, GI bleed, back pain, seizure, CVA, palpatations, mental health, musculoskeletal)? @ -Differential Chest Pain: Stable Angina, Unstable Angina, STEMI, NSTEMI Aortic Dissection, Pneumothorax, Musculoskeletal, Esophageal Spasm GERD, Cholecystitis, Pancreatitis, Zoster, this is not meant to be an all-inclusive list. EKG interpreted by me (3pts min.). @ -yes at 1447 and demonstrates sinus rhythm with a rate of 82. MI interval 157. QRS 95. QTC is 389. No acute ST segment elevations or depressions Repeat done at 1656 demonstrates sinus rhythm with a rate of 85. MI interval 109. QRS 98. QTC of 404. No acute ST segment elevations or depressions X-rays interpreted by me (1pt min.). @ -Yes and demonstrates no acute process CT interpreted by me (1pt min.). @ -None done U/S interpreted by me (1pt. min.). @ -None done What testing was considered but not performed or refused? (CT, X-rays, U/S, labs)? Why? @ -None What meds were considered but not given or refused? Why? @ -None Did you discuss the management of the patient with other professionals (professionals i.e. , PA, CUSTOMER SERVICE VOICE, lab, RT, psych nurse, social science teacher, marketing project coordinator, teacher, financial aids officer, case technician)? Give summary @ -dr miller who accepted admission of patient Was smoking cessation discussed for >3mins.? @ -No Was critical care preformed (if so, how long)? @ -No Were there social determinants of health that impacted care today? How? (Homelessness, low income, unemployed, alcoholism, drug addiction, transportation, low edu. Level, literacy, decrease access to med. care, snf, rehab)? @ -No Was there de-escalation of care discussed even if they declined (Discuss DNR or withdrawal of care, Hospice)? DNR status @ -No What co-morbidities impacted this encounter? (DM, HTN, Smoking, COPD, CAD, Cancer, CVA, ARF, Chemo, Hep., AIDS, mental health diagnosis, sleep apnea, morbid obesity)? @ -hc ascad Was patient admitted / discharged? Hospital course, mention meds given and route, prescriptions, significant lab abnormalities, going to OR and other pertinent info. @ -Upon arrival patient was placed into room 11. Thorough history of physical exam is performed. She was hooked to continuous pulse ox and cardiac monitoring. 12-lead EKG is obtained. Patient was given nitro and aspirin. Laboratory studies are conducted. Chest x-ray was performed. Results are discussed the patient. He continues to have pain. Because of his remote history of MA did recommend admission. He was agreeable to admission. Spoke with Dr. Miller for admission. Undiagnosed new problem with uncertain prognosis? @ -Yes Drug Therapy requiring intensive monitoring for toxicity (Heparin, Nitro, Insulin, Cardizem)? @ -No Were any procedures done? @ -No Diagnosis/symptom? @ -Acute chest pain, hx ascad Acute, or Chronic, or Acute on Chronic? @ -acute Uncomplicated (without systemic symptoms) or Complicated (systemic symptoms)? @ -complicated Side effects of treatment? @ -No Exacerbation, Progression, or Severe Exacerbation? @ -No Poses a threat to life or bodily function? How? (Chest pain, USA, MA, pneumonia, PE, COPD, DKA, ARF, appy, cholecystitis, CVA, Diverticulitis, Homicidal, Suicidal, threat to staff... and all critical care pts) @ -No (YeazarJane Brittanie) - Lab Data Lab Results 09/19/23 09/19/23 09/19/23 Range/Units 14:54 14:54 14:54 WBC 8.7 (3.8-10.6) k/uL RBC 5.19 (4.30-5.90) m/uL Hgb 15.4 (13.0-17.5) gm/dL Hct 45.5 (39.0-53.0) % MCV 87.6 (80.0-100.0) fL MCH 29.7 (25.0-35.0) pg MCHC 33.9 (31.0-37.0) g/dL RDW 12.8 (11.5-15.5) % Plt Count 225 (150-450) k/uL MPV 7.0 Neutrophils % 56 % Lymphocytes % 26 % Monocytes % 10 % Eosinophils % 6 % Basophils % 1 % Neutrophils # 4.8 (1.3-7.7) k/uL Lymphocytes # 2.3 (1.0-4.8) k/uL Monocytes # 0.8 (0-1.0) k/uL Eosinophils # 0.5 (0-0.7) k/uL Basophils # 0.1 (0-0.2) k/uL PT 10.3 (10.0-12.5) sec INR 0.9 (<1.2) APTT 24.9 (22.0-30.0) sec D-Dimer 0.48 (<0.60) mg/L FEU Sodium 137 (137-145) mmol/L Potassium 3.8 (3.5-5.1) mmol/L Chloride 102 (98-107) mmol/L Carbon Dioxide 23 (22-30) mmol/L Anion Gap 12 mmol/L BUN 13 (9-20) mg/dL Creatinine 0.76 (0.66-1.25) mg/dL Est GFR (CKD-EPI)AfAm >90 (>60 ml/min/1.73 sqM) Est GFR (CKD-EPI)NonAf >90 (>60 ml/min/1.73 sqM) Glucose 89 (74-99) mg/dL Calcium 9.1 (8.4-10.2) mg/dL Magnesium 2.1 (1.6-2.3) mg/dL Total Bilirubin 0.5 (0.2-1.3) mg/dL AST 28 (17-59) U/L ALT 28 (4-49) U/L Alkaline Phosphatase 91 (38-126) U/L Troponin I (0.000-0.034) ng/mL Total Protein 7.6 (6.3-8.2) g/dL Albumin 4.3 (3.5-5.0) g/dL 09/19/23 Range/Units 14:54 WBC (3.8-10.6) k/uL RBC (4.30-5.90) m/uL Hgb (13.0-17.5) gm/dL Hct (39.0-53.0) % MCV (80.0-100.0) fL MCH (25.0-35.0) pg MCHC (31.0-37.0) g/dL RDW (11.5-15.5) % Plt Count (150-450) k/uL MPV Neutrophils % % Lymphocytes % % Monocytes % % Eosinophils % % Basophils % % Neutrophils # (1.3-7.7) k/uL Lymphocytes # (1.0-4.8) k/uL Monocytes # (0-1.0) k/uL Eosinophils # (0-0.7) k/uL Basophils # (0-0.2) k/uL PT (10.0-12.5) sec INR (<1.2) APTT (22.0-30.0) sec D-Dimer (<0.60) mg/L FEU Sodium (137-145) mmol/L Potassium (3.5-5.1) mmol/L Chloride (98-107) mmol/L Carbon Dioxide (22-30) mmol/L Anion Gap mmol/L BUN (9-20) mg/dL Creatinine (0.66-1.25) mg/dL Est GFR (CKD-EPI)AfAm (>60 ml/min/1.73 sqM) Est GFR (CKD-EPI)NonAf (>60 ml/min/1.73 sqM) Glucose (74-99) mg/dL Calcium (8.4-10.2) mg/dL Magnesium (1.6-2.3) mg/dL Total Bilirubin (0.2-1.3) mg/dL AST (17-59) U/L ALT (4-49) U/L Alkaline Phosphatase (38-126) U/L Troponin I <0.012 (0.000-0.034) ng/mL Total Protein (6.3-8.2) g/dL Albumin (3.5-5.0) g/dL Disposition <Antoine Loredo - Last Filed: 09/19/23 14:51> Is patient prescribed a controlled substance at d/c from ED?: No Time of Disposition: 16:12 Decision to Admit Reason: Admit from EC Decision Date: 09/19/23 Decision Time: 16:13 <Jane Lennon - Last Filed: 09/20/23 02:07> Clinical Impression: Chest pain Disposition: ADMITTED IP TO THIS HOSP Condition: Stable
[2023-09-19 15:08] LABS: Basophils # (A) 0.1 k/uL (0-0.2); Basophils % (A) 1 %; Eosinophils # (A) 0.5 k/uL (0-0.7); Eosinophils % (A) 6 %; HCT 45.5 % (39.0-53.0); HGB 15.4 gm/dL (13.0-17.5); Lymphocytes # (A) 2.3 k/uL (1.0-4.8); Lymphocytes % (A) 26 %; MCH 29.7 pg (25.0-35.0); MCHC 33.9 g/dL (31.0-37.0); MCV 87.6 fL (80.0-100.0); Monocytes # (A) 0.8 k/uL (0-1.0); Monocytes % (A) 10 %; Neutrophils # (A) 4.8 k/uL (1.3-7.7); Neutrophils % (A) 56 %; Platelet Count 225 k/uL (150-450); RBC 5.19 m/uL (4.30-5.90); RDW 12.8 % (11.5-15.5); WBC 8.7 k/uL (3.8-10.6)
[2023-09-19 15:19] LABS: ALT 28 U/L (4-49); AST 28 U/L (17-59); African American GFR (CKD) >90 (>60 ml/min/1.73 sqM); Albumin 4.3 g/dL (3.5-5.0); Alkaline Phosphatase 91 U/L (38-126); Anion Gap 12 mmol/L; Blood Urea Nitrogen 13 mg/dL (9-20); Calcium 9.1 mg/dL (8.4-10.2); Carbon Dioxide 23 mmol/L (22-30); Chloride 102 mmol/L (98-107); Glucose 89 mg/dL (74-99); Magnesium 2.1 mg/dL (1.6-2.3); Non-African American GFR(CKD) >90 (>60 ml/min/1.73 sqM); Potassium 3.8 mmol/L (3.5-5.1); Sodium 137 mmol/L (137-145); Total Bilirubin 0.5 mg/dL (0.2-1.3); Total Protein 7.6 g/dL (6.3-8.2)
[2023-09-19 15:26] LABS: INR 0.9 (<1.2); Partial Thromboplastin Time 24.9 sec (22.0-30.0); Prothrombin Time 10.3 sec (10.0-12.5)
--- NOTE | 2023-09-19 15:32 | XR ---
EXAMINATION TYPE: XR chest 2V DATE OF EXAM: 09/19/2023 COMPARISON: None HISTORY: 53-year-old male with chest pain TECHNIQUE: PA and lateral views FINDINGS: The cardiomediastinal silhouette, aorta, and pulmonary vasculature are within normal limits. Mild hyp erinflation. Lungs and pleural spaces are clear. IMPRESSION: Mild hyperinflation may relate to depth of inspiration or underlying emphysema. Otherwise, no acute p rocess seen.
[2023-09-19] MEDS ORDERED: NALOXONE 0.4 MG/ML 1 ML VIAL IV PRN (16:13)
[2023-09-19] MEDS ORDERED: MORPHINE SULFATE 4 MG/ML SYRINGE IVP STA (16:46)
[2023-09-19 16:57] LABS: Glucose,Whole Blood 75 mg/dL (70-110)
[2023-09-20] MEDS ORDERED: DEXTROSE 50% SYRINGE 50 ML IVP PRN ×2 (00:46)
--- NOTE | 2023-09-20 01:21 | P.HPIM ---
History of Present Illness H&P Date: 09/19/23 Chief Complaint: chest pain 53 year old male with DM , history of CAD patient coming in for sudden onset chest pain while at work, he was not exerting himself, and while he was in lunch break , suddenly felt left sided chest pressure 7/10 in severity , non radiating , with shortness of breath, denies any dizziness, palpitations, nausea or vomiting. he was brought to the hospital for evaluation, and improved after getting nitro and aspirin. he recalls a heart attack at age 41 not requiring any stents. however, he did have a left heart cath and was started on medications. he denies any fever, chills, cough, sore throat, abd pain , changes in urinary or bowel habits. denies any history of blood clots or recent hospital stay or surgery she denies tobacco smoking illicit drugs or alcohol review of systems Pertinent positives as noted in HPI. All other systems were reviewed and are negative on exam Constitutional: No acute distress, conversant, pleasant Eyes: Anicteric sclerae, moist conjunctiva, Pupils equal round reactive to light ENMT: NC/AT Oropharynx clear, no erythema, or exudates Neck: Supple, no masses, or JVD No carotid bruits No thyromegaly Lungs: Clear to auscultation Clear to percussion Normal respiratory effort, no accessory muscle use Cardiovascular: Heart regular in rate and rhythm, No murmurs, gallops, or rubs No peripheral edema Abdominal: Soft Nontender, no guarding, rebound or rigidity Abdomen moving with respiration Normoactive bowel sounds No hepatomegaly, No splenomegaly No palpable mass No abdominal wall hernia noted Skin: Normal temperature, tone, texture, turgor No induration No subcutaneous nodules No rash, lesions No ulcers Extremities: No digital cyanosis No clubbing Pedal pulses intact and symmetrical Radial pulses intact and symmetrical No calf tenderness Psychiatric: Alert and oriented to person, place and time Appropriate affect fair judgement Neuro Muscles Strength 5/5 in all 4 extremities Sensation to light touch grossly present throughout Cranial nerves II-XII grossly intact Lymphatics: no palpable cervical or supraclavicular lymph nodes Past Medical History Past Medical History: Diabetes Mellitus, Deep Vein Thrombosis (DVT), GERD /Reflux, Myocardial Infarction ([place]), Sleep Apnea/CPAP/BIPAP Additional Past Medical History / Comment(s): CPAP USE , HX DVT LEFT LEG 2009, seizure X1 20 yrs ago. Last Myocardial Infarction Date:: 2010 History of Any Multi-Drug Resistant Organisms: None Reported Past Surgical History: Orthopedic Surgery Additional Past Surgical History / Comment(s): LEFT FOOT SURGERY, LEFT LEG- SPIDER BITE SURGERY ON VEIN, meniscus tear repair 2021 Past Anesthesia/Blood Transfusion Reactions: No Reported Reaction Past Psychological History: Anxiety Smoking Status: Former smoker Past Alcohol Use History: None Reported Additional Past Alcohol Use History / Comment(s): STARTED SMOKING AT AGE 14 SMOKED 2 PACKES A WEEEK, QUIT IN 2014. Past Drug Use History: None Reported - Past Family History Brother(s) Family Medical History: Deep Vein Thrombosis (DVT) Medications and Allergies Home Medications Medication Instructions Recorded Confirmed Type Venlafaxine HCl ER [Effexor Xr] 150 mg PO DAILY 09/10/18 09/19/23 History Tamsulosin [Flomax] 0.4 mg PO DAILY 09/19/23 09/19/23 History Tirzepatide [Mounjaro] 5 mg SQ AGUIRRE 09/19/23 09/19/23 History Allergies Allergy/AdvReac Type Severity Reaction Status Date / Time No Known Allergies Allergy Verified 09/19/23 17:01 Physical Exam Vitals: Vital Signs Temp Pulse Pulse Resp BP BP Pulse Ox 09/19/23 20:06 98.2 F 79 15 127/73 97 09/19/23 18:18 98.9 F 72 18 108/73 97 09/19/23 17:00 126/71 09/19/23 16:43 122/76 09/19/23 14:53 98.6 F 81 19 154/85 98 Intake and Output 09/19/23 09/19/23 09/19/23 06:59 14:59 22:59 Other: Weight 97.522 kg 97.522 kg Results CBC & Chem 7: 09/19/23 14:54 09/19/23 14:54 Assessment and Plan Assessment: 53 year old male with CAD, DM , coming in for chest pain , I discussed the case with ed doctor and accepted the admission for chest pain rule out ACS with anticipated length of stay < 2 midnights chest pain EKG no acute ST changes Trops negative , continue to trend cardiology consult ASA, statin nitro pRN traffic monitor specialist monitor vital signs DM insulin sliding scale full code DVT PPX heparin sc tid blood work unremarkable WBC 8.7 Hgb 15.4 Na 137 K 3.8 BUN 13 Cr 0.76 CXR no acute cardiopulmonary process
[2023-09-20 06:12] LABS: Glucose,Whole Blood 104 mg/dL (70-110)
[2023-09-20] MEDS: INSULIN ASPART (NovoLOG) 100 UNIT/ML VIAL SQ SCH ×2 (06:23→12:52)
[2023-09-20 08:00] VITALS: BP 107/65; PULSE 78; RESP 16; TEMP 98.1
[2023-09-20] MEDS ORDERED: HEPARIN SODIUM,PORCINE 5,000 UNIT/ML 1 ML VIAL SQ SCH (08:00)
[2023-09-20] MEDS ORDERED: ATORVASTATIN 20 MG TAB PO SCH (09:00)
[2023-09-20] MEDS ORDERED: VENLAFAXINE HCL ER 150 MG CAP PO SCH (09:00)
[2023-09-20] MEDS ORDERED: TAMSULOSIN 0.4 MG CAP.ER.24H PO SCH (09:00)
[2023-09-20] MEDS ORDERED: ASPIRIN 81 MG PO SCH (09:00)
[2023-09-20 09:57] LABS: Blood Urea Nitrogen 13.6 mg/dL (9.0-27.0); Calcium 8.9 mg/dL (8.7-10.3); Carbon Dioxide 22.1 mmol/L (21.6-31.8); Chloride 106 mmol/L (96-109); Glucose 105 mg/dL (70-110); Potassium 4.4 mmol/L (3.5-5.5); Sodium 139 mmol/L (135-145)
[2023-09-20 10:04] LABS: Basophils % (A) 1.1 %; Eosinophils % (A) 4.3 %; HCT 42.2 % (39.6-50.0); Lymphocytes % (A) 19.2 %; MCH 29.1 pg (27.0-32.0); MCHC 33.2 g/dL (32.0-37.0); MCV 87.7 FL (80.0-97.0); Mean Platelet Volume 9.8 FL (9.5-12.2); Monocytes # (A) 0.98 X 10*3/uL (0.20-1.00); Monocytes % (A) 10.5 %; NRBC Per 100 WBC 0 X 10*3/uL (0.00-0.01); Neutrophils # (A) 6.05 X 10*3/uL (1.80-7.70); Neutrophils % (A) 64.5 %; Platelet Count 219 X 10*3/uL (140-440); RBC 4.81 X 10*6/uL (4.40-5.60); RDW 13.2 % (11.5-14.5); WBC 9.37 X 10*3/uL (4.50-10.00)
[2023-09-20 12:22] LABS: Glucose,Whole Blood 122 mg/dL (70-110)
--- NOTE | 2023-09-20 13:22 | P.CRDCN ---
History of Present Illness Consult date: 09/20/23 History of present illness: HISTORY OF PRESENTING ILLNESS Patient is a 53-year-old male. He reports that he is a past medical history of NC long time ago and at that time he was not treated with any PCI or stenting. He was apparently doing well until yesterday when he started experiencing significant substernal chest pain which was radiating to his back. This started after his dinner yesterday. When he presented to the ER he re ceived nitroglycerin patch which eased his symptoms. His ECG shows normal sinus rhythm with no significant ST-T wave changes Troponin 2 are negative Other labs are essentially within normal limits. Normotensive Patient denies having any history of smoking decreased previous marijuana yesterday. Denies any heavy alcohol use. He reports occasional caffeine use REVIEW OF SYSTEMS 14 point review of system is negative except what is mentioned above in HPI. PHYSICAL EXAMINATION Vital signs reviewed. Head: Normocephalic. Eyes: Sclerae nonicteric. Neck: Brisk carotid upstroke, no jugular venous distention. Lungs: Clear to auscultation. Heart: Regular rate and rhythm, S1-S2, no S3, no murmur or rub. Abdomen: Soft nontender, positive bowel sounds no organomegaly. Extremities: No edema, intact distal pulses. Neuro: Alert, oritented, no focal deficits ASSESSMENT Atypical chest pain, Rule out of acute coronary syndrome Prior history of NC treated medically long time ago PLAN Start aspirin 81 mg, atorvastatin 20 mg, metoprolol XL 25 mg daily Patient is okay to be discharged from cardiac standpoint. He will need an outpatient treadmill echo stress test in a resting echocardiogram. We will arrange this for the patient to be done on outpatient basis. Past Medical History Past Medical History: Diabetes Mellitus, Deep Vein Thrombosis (DVT), G ERD/Reflux, Myocardial Infarction ([place]), Sleep Apnea/CPAP/BIPAP Additional Past Medical History / Comment(s): CPAP USE , HX DVT LEFT LEG 2009, seizure X1 20 yrs ago. Last Myocardial Infarction Date:: 2010 History of Any Multi-Drug Resistant Organisms: None Reported Past Surgical History: Orthopedic Surgery Additional Past Surgical History / Comment(s): LEFT FOOT SURGERY, LEFT LEG- SPIDER BITE SURGERY ON VEIN, meniscus tear repair 2021 Past Anesthesia/Blood Transfusion Reactions: No Reported Reaction Past Psychological History: Anxiety Smoking Status: Former smoker Past Alcohol Use History: None Reported Additional Past Alcohol Use History / Comment(s): STARTED SMOKING AT AGE 14 SMOKED 2 PACKES A WEEEK, QUIT IN 2014. Past Drug Use History: None Reported - Past Family History Brother(s) Family Medical History: Deep Vein Thrombosis (DVT) Medications and Allergies Home Medications Medication Instructions Recorded Confirmed Type Venlafaxine HCl ER [Effexor Xr] 150 mg PO DAILY 09/10/18 09/19/23 History Tamsulosin [Flomax] 0.4 mg PO DAILY 09/19/23 09/19/23 History Tirzepatide [Mounjaro] 5 mg SQ AGUIRRE 09/19/23 09/19/23 History Allergies Allergy/AdvReac Type Severity Reaction Status Date / Time No Known Allergies Allergy Verified 09/19/23 17:01 Physical Exam Vitals: Vital Signs Temp Pulse Pulse Resp BP BP Pulse Ox 09/20/23 07:00 98.1 F 78 16 107/65 97 09/20/23 02:38 97.9 F 88 14 99/52 97 09/19/23 20:06 98.2 F 79 15 127/73 97 09/19/23 18:18 98.9 F 72 18 108/73 97 09/19/23 17:00 126/71 09/19/23 16:43 122/76 09/19/23 14:53 98.6 F 81 19 154/85 98 Intake and Output 09/19/23 09/20/23 09/20/23 22:59 06:59 14:59 Other: # Voids 1 2 Weight 97.522 kg Results 09/20/23 04:22 09/20/23 04:22 Cardiac Enzymes 09/19/23 09/19/23 09/19/23 Range/Units 14:54 14:54 17:50 AST 28 (17-59) U/L Troponin I <0.012 <0.012 (0.000-0.034) ng/mL 09/19/23 Range/Units 19:10 AST (17-59) U/L Troponin I <0.012 (0.000-0.034) ng/mL Coagulation 09/19/23 Range/Units 14:54 PT 10.3 (10.0-12.5) sec APTT 24.9 (22.0-30.0) sec CBC 09/19/23 09/20/23 Range/Units 14:54 04:22 WBC 8.7 9.37 (3.8-10.6) k/uL RBC 5.19 4.81 (4.30-5.90) m/uL Hgb 15.4 14.0 (13.0-17.5) gm/dL Hct 45.5 42.2 (39.0-53.0) % Plt Count 225 219 (150-450) k/uL Comprehensive Metabolic Panel 09/19/23 09/20/23 Range/Units 14:54 04:22 Sodium 137 139 (137-145) mmol/L Potassium 3.8 4.4 (3.5-5.1) mmol/L Chloride 102 106 (98-107) mmol/L Carbon Dioxide 23 22.1 (22-30) mmol/L BUN 13 13.6 (9-20) mg/dL Creatinine 0.76 1.0 (0.66-1.25) mg/dL Glucose 89 105 (74-99) mg/dL Calcium 9.1 8.9 (8.4-10.2) mg/dL AST 28 (17-59) U/L ALT 28 (4-49) U/L Alkaline Phosphatase 91 (38-126) U/L Total Protein 7.6 (6.3-8.2) g/dL Albumin 4.3 (3.5-5.0) g/dL Current Medications Generic Name Dose Route Start Last Admin Trade Name Freq PRN Reason Stop Dose Admin Aspirin 81 mg 09/20/23 09:00 09/20/23 09:55 Aspirin 81 Mg PO 81 mg DAILY TEODORO Administration Atorvastatin Calcium 20 mg 09/20/23 09:00 09/20/23 09:55 Atorvastatin 20 Mg Tab PO 20 mg DAILY TEODORO Administration Dextrose/Water 25 ml 09/20/23 00:46 Dextrose 50% Syringe 50 Ml IVP PER PROTOCOL PRN Hypoglycemia Protocol Dextrose/Water 50 ml 09/20/23 00:46 Dextrose 50% Syringe 50 Ml IVP PER PROTOCOL PRN Hypoglycemia Protocol Heparin Sodium (Porcine) 5,000 unit 09/20/23 08:00 09/20/23 09:55 Heparin Sodium,Porcine 5,000 Unit/Ml 1 Ml Vial SQ 5,000 unit Q8HR TEODORO Administration Insulin Aspart 0 unit 09/20/23 07:30 09/20/23 12:52 Insulin Aspart (Novolog) 100 Unit/Ml Vial SQ Not Given ACHS TEODORO Protocol Naloxone HCl 0.2 mg 09/19/23 16:13 Naloxone 0.4 Mg/Ml 1 Ml Vial IV Q2M PRN Opioid Reversal Tamsulosin HCl 0.4 mg 09/20/23 09:00 09/20/23 09:55 Tamsulosin 0.4 Mg Cap.Er.24h PO 0.4 mg DAILY TEODORO Administration Venlafaxine HCl 150 mg 09/20/23 09:00 09/20/23 09:55 Venlafaxine Hcl Er 150 Mg Cap PO 150 mg DAILY TEODORO Administration Intake and Output 09/19/23 09/20/23 09/20/23 22:59 06:59 14:59 Other: # Voids 1 2 Weight 97.522 kg 09/20/23 04:22 09/20/23 04:22
[2023-09-20] MEDS ORDERED: NITROGLYCERIN SL TABS 0.4 MG TAB SUBLINGUAL PRN (13:24)
[2023-09-20] MEDS ORDERED: METOPROLOL TARTRATE 25 MG TAB PO SCH (13:30)
--- NOTE | 2023-09-20 14:01 | P.DS ---
Providers Date of admission: 09/19/23 16:13 Expected date of discharge: 09/20/23 Attending physician: João Sr MD Consults: 09/19/23 16:13 Consult Physician Urgent Consulting Provider: [facility] Consult Reason/Comments: acute chest pain, hx ascad Do you want consulting provider notified?: Yes Primary care physician: Morteza Beach Hospital Course: Discharge Diagnosis: Atypical chest pain, resolved. Acute coronary event was ruled out. Troponins trended 3 all negative at less than 0.012. EKG showing normal sinus mechanism. Cardiology evaluated recommending patient follow-up in their office for scheduling of echocardiogram and exercise stress test. Patient discharged home on aspirin 81 mg daily, atorvastatin 40 mg daily, and metoprolol 12.5 mg twice daily. History of coronary artery disease with reported previous [place] Previous provoked DVT in 2009, no longer on anticoagulation Keg-lmudehi-iyyirbwqh diabetes mellitus GERD Obstructive sleep apnea CPAP dependent nightly Hospital Course: Patient is a very pleasant 53-year-old male with a past medical history of CAD with previous [place], previous provoked DVT in and no longer on anticoagulation, hqi-fwhhgsv-wtdlbqpzl diabetes mellitus, GERD, and obstructive sleep apnea CPAP dependent nightly. He presented to the emergency department with a chief complaint of chest pain. Patient reports pain began shortly after eating his lunch yesterday. Patient reports experiencing a pressure-like sen sation to left anterior chest accompanied by nausea and feeling shaky. He underwent full evaluation in the emergency department. Vital signs upon arrival show blood pressure 154/85, heart rate 81, respiratory rate 19, temperature 98.6F, SpO2 of 98% on room air. EKG completed showing normal sinus rhythm at 85 bpm with no noted T wave or ST abnormality showing no signs of acute ischemia. Chest x-ray then completed showing mild hyperinflation with possibility of underlying emphysema otherwise negative for acute cardiopulmonary process. Labs completed and reviewed. CBC, coagulation profile and CMP were unremarkable. Blood glucose was 89. D-dimer normal findings is 0.48. Troponin also normal findings at less than 0.012. Patient was admitted under our services to the cardiac observation unit with consultation to cardiology. Patient reports having full resolution of previous reported left sided chest pain/pressure and currently denies having any other complaints at this time. Troponins were trended overnight all negative at less than 0.0123 draws. Patient was seen and fully evaluated by equipment scheduler and being patient remains free from any complaints at this time and cardiac workup was negative equipment scheduler recommending patient be started on aspirin, atorvastatin, and metoprolol daily in for patient to follow-up outpatient in their office in one week for scheduling of outpatient echocardiogram and cardiac stress test. Medically, patient is stable for discharge at this time. Prescription sent for aspirin 81 mg daily, atorvastatin 40 mg daily, and metoprolol 12.5 mg twice daily to [facility]. Medically, patient stable for discharge and to follow up outpatient with PCP in 1-2 days and with equipment scheduler in 1 week. Physical exam: Patient seen and examined at bedside. Vital signs reviewed and stable. General: Nontoxic, no distress and appears stated age. Derm: Skin warm and dry, normal coloration for ethnicity. Head: Atraumatic, normocephalic and symmetric. Eyes: EOMs intact, no lid lag, and anicteric sclera Mouth: no lip lesions, mucus membranes moist Cardiovascular: regular rate and rhythm with normal S1S2, no murmur, positive posterior tibial pulses bilaterally, and cap refill < 2 seconds. Lungs: Respirations even, regular, and unlabored on room air. Lungs CTA bilaterally, no rhonchi, no rales, no wheezing, and no accessory muscle usage. Abdominal: soft, nontender to palpation, no guarding, no appreciable organomegaly Ext: ROM intact. No gross muscle atrophy, no edema, no contractures Neuro: Speech clear, face symmetrical and CN II-XII grossly intact with no noted focal neuro deficits Psych: Alert and oriented to person, place, time, and situation. Appropriate and pleasant affect. A total of 35 minutes of time were spent preparing this complex discharge summary. Pt was discharged on 09/20/23 at 1:30 PM Patient was seen independently by Nurse Practitioner. This document was prepared using [employer] dictation software. 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 Josemanuel Hollingsworth NP rendered care for this patient independently, reviewed the findings and plan as documented in the note above. I did not physically speak with or examine the patient on this date. Patient Condition at Discharge: Stable Plan - Discharge Summary Discharge Rx Participant: No New Discharge Prescriptions: New Aspirin 81 mg PO DAILY 30 Days #30 tab Atorvastatin [Lipitor] 40 mg PO DAILY 30 Days #30 tablet Nitroglycerin Sl Tabs [Nitrostat] 0.4 mg SUBLINGUAL Q5M PRN #25 tab PRN Reason: Chest Pain Metoprolol Tartrate [Lopressor] 12.5 mg PO BID 30 Days #30 tab Continue Venlafaxine HCl ER [Effexor XR] 150 mg PO DAILY Tamsulosin [Flomax] 0.4 mg PO DAILY Tirzepatide [Mounjaro] 5 mg SQ AGUIRRE Discharge Medication List Venlafaxine HCl ER [Effexor XR] 150 mg PO DAILY 09/10/18 [History] Tamsulosin [Flomax] 0.4 mg PO DAILY 09/19/23 [History] Tirzepatide [Mounjaro] 5 mg SQ AGUIRRE 09/19/23 [History] Aspirin 81 mg PO DAILY 30 Days #30 tab 09/20/23 [Rx] Atorvastatin [Lipitor] 40 mg PO DAILY 30 Days #30 tablet 09/20/23 [Rx] Metoprolol Tartrate [Lopressor] 12.5 mg PO BID 30 Days #30 tab 09/20/23 [Rx] Nitroglycerin Sl Tabs [Nitrostat] 0.4 mg SUBLINGUAL Q5M PRN #25 tab 09/20/23 [Rx] Follow up Appointment(s)/Referral(s): Darci Bermudez MD [Medical Doctor] - 1 Week Bubba Beach MD [STAFF PHYSICIAN] - 1-2 days Patient Instructions/Handouts: Chest Pain (DC) Activity/Diet/Wound Care/Special Instructions: Activity: As tolerated. Take breaks as needed. Diet: Heart healthy and carb consistent diet. Avoid salts, or foods with hidden salts such as canned or boxed foods and frozen dinners. Extra salt makes your heart work harder and traps the fluid in your body for longer. Special Instructions: Take all of your medications as directed and remember to keep all of your doctor's appointments and follow-up as needed. You will need to call the equipment scheduler's office first thing Friday to schedule appointment with Dr. Bermudez for recommended echocardiogram and outpatient stress testing. Thank you for allowing us to participate in your care, it was truly a pleasure having you for our patient!!! Discharge Disposition: HOME SELF-CARE
[2023-09-20] MEDS ORDERED: METOPROLOL TARTRATE 12.5 MG TAB PO SCH (21:00)
[2023-09-21] MEDS ORDERED: ATORVASTATIN 40 MG TAB PO SCH (09:00)
== END 2023-09-20 15:38 | disposition home or self-care (01) ==
LOC: SUPCPDRO 14:41 → EC 14:41 → 6NMEDSUR 16:13
PROVIDERS: ADMIT Student in an Organized Health Care Education/Training Program; ATTEND Student in an Organized Health Care Education/Training Program
DX: R07.2 Precordial pain (principal); R06.02 Shortness of breath; R61 Generalized hyperhidrosis; I25.10 Atherosclerotic heart disease of native coronary artery without angina pectoris; K21.9 Gastro-esophageal reflux disease without esophagitis; E11.9 Type 2 diabetes mellitus without complications; G47.33 Obstructive sleep apnea (adult) (pediatric); F41.9 Anxiety disorder, unspecified; I25.2 Old myocardial infarction; Z79.85 Long-term (current) use of injectable non-insulin antidiabetic drugs; Z79.899 Other long term (current) drug therapy; Z86.718 Personal history of other venous thrombosis and embolism; Z87.891 Personal history of nicotine dependence; Z98.890 Other specified postprocedural states; Z82.49 Family history of ischemic heart disease and other diseases of the circulatory system
CPT/HCPCS: 96372; 96374; 99285; 36415; 93005; 85379; 80053; 80048; 83735; 84484; 85025 ×2; 85610; 85730; 71046; G0378 ×2; J2270; J1644